=== PATIENT | male | born 1995 | race Caucasian/White ===

== ENCOUNTER 2016-12-18 15:15 | Emergency (ER) | payer SELFPAY ==
[2016-12-18] MEDS ORDERED: Lidocaine 1% 10 MG/ML - 20 ML VIAL SUBCUT ONE (15:26)
[2016-12-18 15:33] VITALS: RESP 18; TEMP 98
--- NOTE | 2016-12-19 05:56 | PDOC ---
Hand / Wrist Injury HPI - General Chief Complaint: Laceration / Wound Stated Complaint: R INDEX FINGER LACERATION Date Seen by Provider: 12/18/16 Time Seen by Provider: 15:20 Source: POSITIVE: Patient Exam Limitations: POSITIVE: No limitations Nurse's Notes Reviewed & Considered: Yes - History of Present Illness Initial Comments: The patient is a 21-year-old male. Approximately one hour ORCHID HAND he was cutting some insulation with a sharp knife and accidentally lacerated his right index finger over the proximal phalange, radial aspect. He sustained a flap-type laceration in this area. Patient's last tetanus vaccination was 6 years ago. No paresthesia or sensory or motor symptoms. Have you received a tetanus shot in the past 10 years?: Yes Body Location Affected: REPORTS: Upper Extremity (R) (Left index finger as above ) Timing: REPORTS: Abrupt Duration: 1 hour Severity: Moderate Location at Time of Onset: REPORTS: Home Context: REPORTS: Laceration Location of Injury: REPORTS: Right, 2nd Finger Quality: REPORTS: "Pain" Modifying Factors: REPORTS: Nothing Exacerbates Associated Symptoms: DENIES: Arm (R), Arm (L), Tingling Distally, Numbness Distally, Loss of Feeling, Loss of Power, Other Any Prior Injuries Related to Current Complaint?: No - Patient Home Medications Home Medications: Home Medications NK [No Home Medications Reported] 12/18/16 - Patient Allergies Allergies/Adverse Reactions: Allergies Allergy/AdvReac Type Severity Reaction Status Date / Time No Known Allergies Allergy Verified 12/18/16 15:20 Past Medical History - heen HEENT History: Denies History Cardiovascular History: Denies History Respiratory History: Denies History Gastrointestinal History: Denies History Genitourinary History: Denies History Endocrine History: Denies History Musculoskeletal History: Denies History Prosthesis or Implant: No Neurological History: Denies History Blood Disorders: Denies History Psychiatric History: Denies History History of Sexually Transmitted Diseases: No Male Reproductive History: Denies History In Past Year Been Physically Harmed or Verbally Threatened: No History of MDRO: No History of Other Communicable Diseases: No Tobacco Use: Former Smoker Alcohol Use: Occasionally Substance Use Type: None Previous Surgical History: No Past Medical History Reviewed: Reviewed - No Changes ROS - Limitations ROS Limitations: No Limitations Constitution: REPORTS: Denies Symptoms Cardiovascular: REPORTS: Denies Cardiac Symptoms Respiratory: REPORTS: Denies Resp Symptoms Neurological: REPORTS: Denies Neuro Symptoms Gastrointestinal: REPORTS: Denies GI Symptoms Endocrine: REPORTS: Denies Symptoms Musculoskeletal: REPORTS: Recent Injury (Laceration right index finger as above ; see diagram) Genitourinary: REPORTS: Denies Symptoms Eyes: REPORTS: Denies Symptoms ENT: REPORTS: Denies Symptoms Skin: REPORTS: Other (Laceration right index finger as above; see diagram) Hand / Wrist Injury Exam - General Appearance General Appearance: POSITIVE: Alert, Cooperative, No Acute Distress, No Evidence of Trauma - Extremities Upper Extremity: POSITIVE: No Evidence of FB, Normal ROM, Soft Tissue Tenderness , Uninjured Above Wrist, See Diagram. NEGATIVE: Bony Tenderness, Swelling, Ecchymosis, Deformity, Complete Nail Injury, Partial Avulsion, Limited ROM, Limited ROM d/t Pain, Ltd. ROM d/t Funct. Def., Snuff Box Position Tender, Axial Thumb Load Pain Neurovascular / Tendon: POSITIVE: Sensation Normal, Motor Normal, No Vascular Compromise, Tendon Function Normal Skin: POSITIVE: See Diagram (laceration right index finger) - Respiratory / CVS Respiratory / CVS: POSITIVE: Chest Non Tender, No Ecchymosis, Breath Sounds Normal, No Respiratory Distress, Heart Sounds Normal, Regular Rate/Rhythm Peripheral Pulses: Radial (R): 2+, Radial (L): 2+ Images - Hands Hand: 1 - Flap-type laceration Procedure - Laceration/Wound Repair Site of Lac/Wound:: Right index finger Time of Suture Placement:: 15:30 Wound Length (cm): 5 Wound's Depth, Shape: Into subcutaneous tissue, Flap Distal CMS: Yes Skin Prep: Sterile Field Maintained, Sterile Drapes Applied, Sterile Dressing Applied, Amira Local Anesthesia Used - Indicate Amt Used in Comment: Lidocaine 1%: Yes Irrigated w/ Saline (mL): 20 Wound Explored: No foreign body removed Wound Debrided: Minimal Wound Repaired With: Sutures single layer Suture Size/Type: 5:0 Number of Sutures: 10 Layer Closure?: No Drain Placement: No Sterile Dressing Applied?: Yes Splint Applied?: No Hand / Wrist Injury Progress - Patient's Progress Pain Medication Addressed: POSITIVE: Yes (recommended Advil or Tylenol) School/Work Release Addressed: POSITIVE: Yes (keep sutures clean) Re-Examine Time: 15:50 Re-Examine Comment: Primary closure complete Status: POSITIVE: Improved, Re-Examined - Consult Counseled: POSITIVE: Patient Patient Care Time - Estimated PCT Patient Care Time (In Minutes): 33 Vital Signs - VS Reviewed Vital Signs Reviewed: Yes Discharge Clinical Impression: Laceration - injury Discharge Disposition: Discharged to Home Condition: Fair Patient Instructions Given at Discharge: Laceration (ED) Additional Instructions: Keep sutures clean. Do not submerge hand. Return in 10 days for suture removal , or sooner at first sign of infection, or if condition worsens in any way. Follow Up With: NONE,NONE [Primary Care Provider] - (Instructions as above. Return for suture removal in 10 days. Return any time at first sign of infection, or if condition worsens in any way.)
== END 2016-12-18 16:11 | disposition home or self-care (01) ==
LOC: ER 15:15
DX: S61.210A Laceration without foreign body of right index finger without damage to nail, initial encounter (principal); W26.0XXA Contact with knife, initial encounter
CPT/HCPCS: 12002; 99282; J2001